=== PATIENT | male | born 1975 | race Asian ===

== ENCOUNTER 2017-04-10 10:40 | Emergency (ER) | payer OTHER ==
[~2017-04-10] VITALS: Ht 160 cm; Wt 65.8 kg
[2017-04-10] MEDS ORDERED: KETOROLAC TROMETH 60MG/2ML VIAL IM ONE (16:00)
[2017-04-10 16:30] VITALS: BP 133/86
== END 2017-04-10 18:07 | disposition home or self-care (01) ==
LOC: ER 10:40
DX: G56.03 Carpal tunnel syndrome, bilateral upper limbs (principal); Z82.49 Family history of ischemic heart disease and other diseases of the circulatory system
CPT/HCPCS: 96372; 99283; J1885